=== PATIENT | female | born 1945 | race African-American/Black ===

== ENCOUNTER 2016-06-03 12:42 | Emergency (ER) | payer BC, MEDICARE ==
[~2016-06-03 12:42] MED LIST: DOXY100C2 PO; EZET10TA3 PO; LEVO5TAB2 PO; LISI-334 PO; METF500T4 PO; NAPR375T3 PO
[2016-06-03] MEDS ORDERED: ASCO500T19 PO (14:12)
[2016-06-03] MEDS ORDERED: FLAX1CAP6 PO (14:13)
[2016-06-03] MEDS ORDERED: COD1CAPS PO (14:13)
[2016-06-03] MEDS ORDERED: FLUT9.9S NS (14:14)
[2016-06-03] MEDS ORDERED: MELA3TAB PO (14:14)
[2016-06-03] MEDS ORDERED: MELO-156 PO (14:15)
[2016-06-03] MEDS ORDERED: METO25TA4 PO (14:16)
[2016-06-03] MEDS ORDERED: OMEP40CA5 PO (14:17)
[2016-06-03] MEDS ORDERED: MILK150C2 PO (14:17)
[2016-06-03] MEDS ORDERED: ZINC220T PO (14:18)
[2016-06-03] MEDS ORDERED: SELE200T10 PO (14:18)
[2016-06-03] MEDS ORDERED: IV NORMAL SALINE 1000ML BAG 1,000 ML IV SCH (15:23)
--- NOTE | 2016-06-03 15:23 | PHYS DOC ---
Past Medical History Past Medical History: Diabetes-Type II, Diverticulitis, Other Additional Past Medical Histor: breast cysts, polymyalgia rheumatica Past Surgical History: Hysterectomy, Tonsillectomy, Other Additional Past Surgical Histo: wisdom teeth extraction Alcohol Use: None Drug Use: None Adult General Chief Complaint Chief Complaint: DIZZY/LIGHT HEADED HPI HPI Patient is a 71 year old female who presents with complaint of near syncopal symptoms. Patient states that she was at work using the restroom and became very lightheaded. Patient took her blood pressure at that time and also found to be 170 systolic. The patient took metoprolol and lisinopril. Currently the patient denies any dizziness. Patient states that she had a similar episode one week ago. Patient did not experience any chest pain. Patient did have symptoms of lightheadedness like she was going to pass out. Patient also admitted to tinnitus in the left ear. Patient has history of hypertension and type 2 diabetes mellitus. Since this is her second episode the patient came to the emergency department for evaluation. Review of Systems Review of Systems Constitutional: Lightheadedness, Denies fever or chills [] Eyes: Denies change in visual acuity, redness, or eye pain [] HENT: Tinnitus, Denies nasal congestion or sore throat [] Respiratory: Denies cough or shortness of breath [] Cardiovascular: Hypertension, denies chest pain or edema [] GI: Denies abdominal pain, nausea, vomiting, bloody stools or diarrhea [] : Denies dysuria or hematuria [] Musculoskeletal: Denies back pain or joint pain [] Integument: Denies rash or skin lesions [] Neurologic: Denies headache, focal weakness or sensory changes [] Current Medications Current Medications Current Medications Medications (Trade) Dose Ordered Sig/Madison Start Time Stop Time Status Last Admin Dose Admin Sodium Chloride (Iv Sodium Chloride 0.9% 1000ml Bag) 1,000 ml @ 1,000 mls/hr Q1H 06/03/16 15:23 06/03/16 16:22 DC 06/03/16 16:30 1,000 MLS/HR Allergies Allergies Allergies Coded Allergies Type Severity Reaction Last Updated Verified Fotqjwe-Ruw-Yic Reductase Inhibitor Allergy Intermediate 01/11/14 Yes Physical Exam Physical Exam Constitutional: Alert, afebrile, no acute distress. [] HENT: Normocephalic, atraumatic, bilateral external ears normal, oropharynx moist, no oral exudates, nose normal. [] Eyes: PERRLA, EOMI, conjunctiva normal, no discharge. [] Neck: Normal range of motion, no tenderness, supple, no stridor. [] Cardiovascular:Heart rate regular rhythm, no murmur [] Lungs & Thorax: Bilateral breath sounds clear to auscultation [] Abdomen: Bowel sounds normal, soft, no tenderness, no masses, no pulsatile masses. [] Skin: Warm, dry, no erythema, no rash. [] Back: No tenderness, no CVA tenderness. [] Extremities: No tenderness, no cyanosis, no clubbing, ROM intact, no edema. [] Neurologic: Alert and oriented X 3, normal motor function, normal sensory function, no focal deficits noted. [] Current Patient Data Vital Signs Vital Signs Date Time Temp Pulse Resp B/P Pulse Ox O2 Delivery O2 Flow Rate FiO2 06/03/16 17:35 73 15 114/57 96 Room Air 06/03/16 13:52 97.8 97.8 Lab Values Laboratory Tests Test 06/03/16 15:30 06/03/16 16:10 Urine Collection Type Unknown Urine Color Yellow Urine Clarity Clear Urine pH 6.5 Urine Specific [place] 1.010 Urine Protein Negativemg/dL (NEG-TRACE) Urine Glucose (UA) Negativemg/dL (NEG) Urine Ketones (Stick) Negativemg/dL (NEG) Urine Blood Negative (NEG) Urine Nitrite Negative (NEG) Urine Bilirubin Negative (NEG) Urine Urobilinogen Dipstick 0.2mg/dL (0.2 mg/dL) Urine Leukocyte Esterase Negative (NEG) Urine RBC 0/HPF (0-2) Urine WBC 0/HPF (0-4) Urine Squamous Epithelial Cells Occ/LPF Urine Bacteria 0/HPF (0-FEW) White Blood Count 5.9x10^3/uL (4.0-11.0) Red Blood Count 5.60x10^6/uL (3.50-5.40) H Hemoglobin 14.5g/dL (12.0-15.5) Hematocrit 44.9% (36.0-47.0) Mean Corpuscular Volume 80fL (79-100) Mean Corpuscular Hemoglobin 26pg (25-35) Mean Corpuscular Hemoglobin Concent 32g/dL (31-37) Red Cell Distribution Width 16.5% (11.5-14.5) H Platelet Count 266x10^3/uL (140-400) Neutrophils (%) (Auto) 57% (31-73) Lymphocytes (%) (Auto) 32% (24-48) Monocytes (%) (Auto) 10% (0-9) H Eosinophils (%) (Auto) 1% (0-3) Basophils (%) (Auto) 1% (0-3) Neutrophils # (Auto) 3.4x10^3uL (1.8-7.7) Lymphocytes # (Auto) 1.9x10^3/uL (1.0-4.8) Monocytes # (Auto) 0.6x10^3/uL (0.0-1.1) Eosinophils # (Auto) 0.0x10^3/uL (0.0-0.7) Basophils # (Auto) 0.0x10^3/uL (0.0-0.2) Sodium Level 144mmol/L (136-145) Potassium Level 4.0mmol/L (3.5-5.1) Chloride Level 105mmol/L (98-107) Carbon Dioxide Level 29mmol/L (21-32) Anion Gap 10 (6-14) Blood Urea Nitrogen 17mg/dL (7-20) Creatinine 0.8mg/dL (0.6-1.0) Estimated GFR (Cockcroft-Gault) 86.1 BUN/Creatinine Ratio 21 (6-20) H Glucose Level 96mg/dL (70-99) Calcium Level 10.0mg/dL (8.5-10.1) Magnesium Level 2.3mg/dL (1.8-2.4) Total Bilirubin 0.3mg/dL (0.2-1.0) Aspartate Amino Transferase (AST) 15U/L (15-37) Alanine Aminotransferase (ALT) 22U/L (14-59) Alkaline Phosphatase 69U/L (46-116) Total Protein 8.8g/dL (6.4-8.2) H Albumin 3.8g/dL (3.4-5.0) Albumin/Globulin Ratio 0.8 (1.0-1.7) L Thyroid Stimulating Hormone (TSH) 3.557uIU/mL (0.358-3.74) Laboratory Tests 06/03/16 16:10 Laboratory Tests 06/03/16 16:10 EKG EKG Interpreted by me: Heart rate 75, sinus rhythm, leftward axis, normal intervals , no acute ST/T-wave abnormalities present [] Radiology/Procedures Radiology/Procedures [facility] [address] [place] [address] IMAGING REPORT Signed PATIENT: LAKESHIA MACE ACCOUNT: [id number] : 1945 LOCATION: ER AGE: 71 SEX: F EXAM STATUS: REG ER ORD. PHYSICIAN: HARESH JOHNSON MD REASON: dizziness, near syncope PROCEDURE: HEAD WO CONTRAST Indication: Dizziness and hypertension. Axial imaging through the brain was performed without contrast. The ventricles and sulci are within normal limits. No sulcal effacement is identified. There is no midline shift. No acute intra-axial or extra-axial hemorrhage is detected. The cisterns are patent. The visualized paranasal sinuses are clear. Impression: No acute intracranial process is detected. PQRS Compliance Statement: One or more of the following individualized dose reduction techniques were utilized for this examination: 1. Automated exposure control 2. Adjustment of the mA and/or kV according to patient size 3. Use of iterative reconstruction technique DICTATED and SIGNED BY: LIBBY MACIEL MD DATE: 06/03/16 1550 CC: MIRZA MANRIQUEZ; HARESH JOHNSON MD ~ [] Course & Med Decision Making Course & Med Decision Making Pertinent Labs and Imaging studies reviewed. (See chart for details) Patient was given IV fluids in the emergency department. The patient's lab work is unremarkable and head CT does not reveal any acute pathology. The patient's symptoms are felt less likely to be due to hypertension as the patient's blood pressure reached a maximum of 170 systolic which is not felt the cause acute end -organ damage. The patient's symptoms may be medication related. I did recommend that the patient follow-up with her toy packer, Dr. Loaiza, in 2-3 days for reevaluation. Advised return to emergency department for any worsening symptoms. Patient voiced understanding and in agreement with treatment plan. Dragon Disclaimer Dragon Disclaimer This electronic medical record was generated, in whole or in part, using a voice recognition dictation system. Departure Departure Impression: Primary Impression: Essential hypertension Additional Impression: Near syncope Disposition: HOME, SELF-CARE Condition: IMPROVED Referrals: MIRZA MANRIQUEZ (PCP) Patient Instructions: Dizziness Additional Instructions: Follow-up with Dr. Loaiza in the next 2-3 days. Be sure to avoid any strenuous activity until you have seen Dr. Loaiza. Return to the emergency department for any worsening symptoms. Problem Qualifiers HARESH JOHNSON MD Jun 03, 2016 15:23
[2016-06-03 15:42] LABS: BILIRUBIN,URINE NEGATIVE (NEG); GLUCOSE,URINE NEGATIVE (NEG); NITRITE,URINE NEGATIVE (NEG); PH,URINE 6.5; PROTEIN,URINE NEGATIVE (NEG-TRACE); UROBILINOGEN,URINE 0.2 mg/dL (0.2 mg/dL)
--- NOTE | 2016-06-03 15:46 | EKG ---
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
[2016-06-03 15:52] LABS: BACTERIA,URINE 0 /HPF (0-FEW); RBC,URINE 0 /HPF (0-2); SQUAMOUS EPITHELIAL CELL,UR OCC /LPF; WBC,URINE 0 /HPF (0-4)
--- NOTE | 2016-06-03 15:53 | RAD ---
Indication: Dizziness and hypertension. Axial imaging through the brain was performed without contrast. The ventricles and sulci are within normal limits. No sulcal effacement is identified. There is no midline shift. No acute intra-axial or extra-axial hemorrhage is detected. The cisterns are patent. The visualized paranasal sinuses are clear. Impression: No acute intracranial process is detected. PQRS Compliance Statement: One or more of the following individualized dose reduction techniques were utilized for this examination: 1. Automated exposure control 2. Adjustment of the mA and/or kV according to patient size 3. Use of iterative reconstruction technique
[2016-06-03 16:45] LABS: CREATININE 0.8 mg/dL (0.6-1.0); GFR 86.1
[2016-06-03 16:51] LABS: BASO % 1 % (0-3); EOS % 1 % (0-3); HEMATOCRIT 44.9 % (36.0-47.0); HEMOGLOBIN 14.5 g/dL (12.0-15.5); LYMPH # 1.9 x10^3/uL (1.0-4.8); LYMPH % 32 % (24-48); MEAN CORPUSCULAR HEMOGLOBIN 26 pg (25-35); MEAN CORPUSCULAR HGB CONC 32 g/dL (31-37); MEAN CORPUSCULAR VOLUME 80 fL (79-100); MONO % 10 % (0-9); NEUT % 57 % (31-73); PLATELET COUNT 266 x10^3/uL (140-400); RED CELL DISTRIBUTION WIDTH 16.5 % (11.5-14.5); WHITE BLOOD COUNT 5.9 x10^3/uL (4.0-11.0)
[2016-06-03 16:52] LABS: ALBUMIN 3.8 g/dL (3.4-5.0); ALBUMIN/GLOBULIN RATIO 0.8 (1.0-1.7); MAGNESIUM 2.3 mg/dL (1.8-2.4); TOTAL BILIRUBIN 0.3 mg/dL (0.2-1.0); TOTAL PROTEIN 8.8 g/dL (6.4-8.2)
[2016-06-03 17:35] VITALS: BP 114/57
== END 2016-06-03 18:15 | disposition home or self-care (01) ==
LOC: ER 12:42
DX: I10 Essential (primary) hypertension (principal); R55 Syncope and collapse; E11.9 Type 2 diabetes mellitus without complications; M35.3 Polymyalgia rheumatica; Z88.8 Allergy status to other drugs, medicaments and biological substances
CPT/HCPCS: 36415; 70450; 80053; 81001; 83735; 84443; 85027; 93005; 96360; 99285; J7030

== ENCOUNTER → 2016-07-02 | Outpatient (CLI) | payer BC, MEDICARE ==
[2016-06-03 17:35] VITALS: BP 114/57
[~2016-07-02] MED LIST changes: +ASCO500T19 PO; +COD1CAPS2 PO; +FLAX1CAP6 PO; +FLUT9.9S NS; +MELA3TAB PO; +MELO-156 PO; +METO25TA4 PO; +MILK150C2 PO; +OMEP40CA5 PO; +SELE200T10 PO; +ZINC220T PO
--- NOTE | 2016-07-02 11:22 | CARD ---
APPROVED REPORT EXAM: Two-dimensional and M-mode echocardiogram with Doppler and color Doppler. Other Information Quality : GoodHR: 72bpm Rhythm : NSR INDICATION Syncope RISK FACTORS Hypertension 2D DIMENSIONS RVDd2.4 (2.9-3.5cm)Left Atrium(2D)2.9 (1.6-4.0cm) IVSd0.9 (0.7-1.1cm)Aortic Root(2D)2.9 (2.0-3.7cm) LVDd4.4 (3.9-5.9cm)LVOT Diameter2.2 (1.8-2.4cm) PWd0.9 (0.7-1.1cm)LVDs2.8 (2.5-4.0cm) FS (%) 37.4 %SV60.3 ml LVEF(%)67.6 (>50%) Aortic Valve AoV Peak Jesse.146.5cm/sAoV VTI32.1cm AO Peak GR.8.6mmHgLVOT Peak Jesse.115.6cm/s AO Mean GR.5mmHgAVA (VMAX)3.10cm2 AI P 1/2 [id number] Mitral Valve MV E Ekffszvi16.5cm/sMV E Peak Gr.4mmHg MV DECEL [id number] A Wbknejrf82.8cm/s MV E Mean Gr.1mmHgE/A Ratio0.8 MV A [id number] Pulmonary Valve PV Peak Hdpqkemv60.2cm/s Tricuspid Valve TR P. Mnrlawjx053ql/sTR Peak Gr.30mmHg Pulmonary Vein S1 Crhfsoag84.3cm/sD2 Lnvdsvvi63.9cm/s PVa [id number] LEFT VENTRICLE The left ventricle is normal size. There is normal left ventricular wall thickness. The left ventricu lar systolic function is normal and the ejection fraction is within normal range. The Ejection Fracti on is 60-65%. There is normal LV segmental wall motion. Transmitral Doppler flow pattern is Grade I-a bnormal relaxation pattern. RIGHT VENTRICLE The right ventricle is normal size. There is normal right ventricular wall thickness. The right ventr icular systolic function is normal. ATRIA The left atrium size is normal. The right atrium size is normal. The interatrial septum is intact wit h no evidence for an atrial septal defect or patent foramen ovale as noted on 2-D or Doppler imaging. AORTIC VALVE The aortic valve is mildly thickened. Doppler and Color Flow revealed trace aortic regurgitation. The re is no significant aortic valvular stenosis. MITRAL VALVE The mitral valve leaflets are thickened. There is no evidence of mitral valve prolapse. There is no m itral valve stenosis. Doppler and Color Flow revealed trace mitral regurgitation. TRICUSPID VALVE Doppler and Color Flow revealed trace tricuspid regurgitation. The pulmonary artery systolic pressure is estimated at 35 mmHg. There is mild pulmonary hypertension. PULMONIC VALVE Doppler and Color Flow revealed mild pulmonic valvular regurgitation. There is no pulmonic valvular s tenosis. GREAT VESSELS The aortic root is normal in size. The ascending aorta is normal in size. The IVC is normal in size a nd collapses >50% with inspiration. PERICARDIAL EFFUSION There is no evidence of significant pericardial effusion. Critical Notification Critical Value: No <Conclusion> The left ventricular systolic function is normal and the ejection fraction is within normal range. Th e Ejection Fraction is 60-65%. No significant valvular disease.
== END | disposition home or self-care (01) ==
LOC: ECHO 07:51
PROVIDERS: ATTEND Internal Medicine Cardiovascular Disease
DX: R55 Syncope and collapse (principal)
CPT/HCPCS: 93306

== ENCOUNTER → 2016-09-05 | Outpatient (CLI) | payer BC ==
--- NOTE | 2016-09-05 13:37 | CARD ---
APPROVED REPORT PROCEDURE: Successful implantation of Biotronik Biomonitor loop recorder INDICATIONS: Syncope of uncertain etiology PROCEDURE DETAILS: An informed consent was obtained from patient. Patient was brought to the procedure suite and her le ft chest and shoulder were prepped and draped in the usual fashion. 20 mL of 2% lidocaine was infilt rated into the skin and subcutaneous tissues for local anesthesia. An incision was made in the left third intercostal space 1 inch from midsternal line and using the introducer provided with the kit a track was created in subcutaneous tissue. Subsequently, with the help of the deployer provided with the kit, a Biotronik Biomonitor loop recorder was placed in the subcutaneous tissue. The incision wa s closed in one layer. Hemostasis was secured. Patient tolerated the procedure well. There were no immediate complications. CONCLUSION: Successful implantation of Biotronik Biomonitor loop recorder for syncope of uncertain etiology to ru le out any significant arrhythmias.
== END | disposition home or self-care (01) ==
LOC: LINQ 09:57
PROVIDERS: ATTEND Internal Medicine Cardiovascular Disease
DX: R55 Syncope and collapse (principal); M19.072 Primary osteoarthritis, left ankle and foot; E11.9 Type 2 diabetes mellitus without complications; Z90.710 Acquired absence of both cervix and uterus; Z83.3 Family history of diabetes mellitus; Z82.49 Family history of ischemic heart disease and other diseases of the circulatory system
CPT/HCPCS: 33282; C1764

== ENCOUNTER → 2016-10-20 | Outpatient (CLI) | payer BC, MEDICARE ==
[~2016-10-20] MED LIST changes: +EZET10TA18 PO; -EZET10TA3 PO; -MELA3TAB PO; +MELA3TAB2 PO; -MELO-156 PO; +MELO7.5T29 PO
--- NOTE | 2016-10-20 16:48 | RAD ---
MRI Cervical Spine Without Contrast History:NECK PAIN AND NUMBNESS WITH WORSENING BILATERAL ARM RADICULOPATHY, HX OF POLYMYALGIA RHEUMATICA Technique: Multiplanar, multi sequential noncontrast MR imaging was performed of the cervical spine. Comparison: None Findings: Cervical vertebral body stature and AP alignment are maintained. Cervical cord caliber is within normal limits without convincing focal signal abnormality allowing for artifact. There is no significant abnormality of the cervical medullary junction. There is nonspecific relative low signal of the marrow on T1 and T2 sequences. Intervertebral disc spaces are overall adequate. C2-C3: Neural foramina and spinal canal are adequate. C3-C4: Neural foramina and spinal canal are adequate. C4-C5: There is moderate left facet hypertrophic change. Spinal canal is adequate. There is mild narrowing of the left neural foramen, right neural foramen adequate. C5-C6: Spinal canal and neural foramina are adequate. C6-C7: Spinal canal and the neural foramina are adequate. C7-T1: There is a shallow right paracentral protrusion. Neural foramina and spinal canal are adequate. Impression: 1. There is no significant cervical spinal stenosis. There is minimal narrowing of the left C4-5 neural foramen by facet hypertrophic change. 2. There is relative low signal of the marrow on T1 and T2 sequences not associated with significant marrow edema. Nonspecific findings could be due to hyperplastic marrow as can be associated with chronic or systemic stress reaction or hypoxia. Electronically signed by: Giorgio Fermin MD (10/20/2016 4:45 PM)
== END | disposition home or self-care (01) ==
LOC: MRI 15:03
PROVIDERS: ATTEND Psychiatry & Neurology Neurology
DX: M54.2 Cervicalgia (principal)
CPT/HCPCS: 72141

== ENCOUNTER 2016-12-31 21:20 | Emergency (ER) | payer BC, MEDICARE ==
[~2016-12-31] VITALS: Ht 160 cm; Wt 97.5 kg
[2016-12-31 21:34] VITALS: BP 164/86
--- NOTE | 2016-12-31 21:52 | PHYS DOC ---
Past Medical History Past Medical History: Diabetes-Type II, Diverticulitis, Other Additional Past Medical Histor: breast cysts, polymyalgia rheumatica Past Surgical History: Hysterectomy, Tonsillectomy, Other Additional Past Surgical Histo: wisdom teeth extraction Alcohol Use: None Drug Use: None Adult General Chief Complaint Chief Complaint: ABDOMINAL PAIN HPI HPI Patient is a 71 year old female who presents with complaint of abdominal pain and vomiting. Patient states that her symptoms started earlier today. Patient states that she started having trouble after she had eaten a salad that had a vinegar dressing which she states may have worsened her gastritis. Patient states initially she felt lightheaded and had ringing in her ears. Patient states she had one episode of vomiting which seemed to help briefly with her symptoms, however she states that her pain symptoms started coming back. Patient describes the pain as burning and states that in her upper abdomen and radiates towards her left side. Patient denies radiation of pain into her back or chest. Patient denies shortness of breath, fever. Patient has had loose stools today which she states has aggravated hemorrhoids and has caused mild bleeding but states that she is not having any severe or atypical bleeding for her hemorrhoids. Due to persistent symptoms, the patient came to the emergency department for evaluation. Review of Systems Review of Systems Constitutional: Denies fever or chills [] Eyes: Denies change in visual acuity, redness, or eye pain [] HENT: Denies nasal congestion or sore throat [] Respiratory: Denies cough or shortness of breath [] Cardiovascular: Denies chest pain or edema [] GI: Abdominal pain, nausea, vomiting, loose stools [] : Denies dysuria or hematuria [] Musculoskeletal: Denies back pain or joint pain [] Integument: Denies rash or skin lesions [] Neurologic: Denies headache, focal weakness or sensory changes [] Current Medications Current Medications Current Medications Medications (Trade) Dose Ordered Sig/Madison Start Time Stop Time Status Last Admin Dose Admin Famotidine (Pepcid) 20 mg 1X ONCE 12/31/16 22:00 12/31/16 22:01 DC 12/31/16 22:22 20 MG Multi-Ingredient Mouthwash/Gargle (Gi Cocktail Single Dose) 15 ml 1X ONCE 12/31/16 22:00 12/31/16 22:01 DC 12/31/16 22:23 15 ML Ondansetron HCl (Zofran) 4 mg 1X ONCE 12/31/16 22:00 12/31/16 22:01 DC 12/31/16 22:23 4 MG Sodium Chloride 1,000 ml @ 1,000 mls/hr Q1H 12/31/16 22:00 12/31/16 22:59 DC 12/31/16 22:21 1,000 MLS/HR Allergies Allergies Allergies Coded Allergies Type Severity Reaction Last Updated Verified Exlqbre-Pku-Jya Reductase Inhibitor Allergy Intermediate 01/11/14 Yes Physical Exam Physical Exam Constitutional: Alert, afebrile, no acute distress. [] HENT: Normocephalic, atraumatic, bilateral external ears normal, oropharynx moist, no oral exudates, nose normal. [] Eyes: PERRLA, EOMI, conjunctiva normal, no discharge. [] Neck: Normal range of motion, no tenderness, supple, no stridor. [] Cardiovascular:Heart rate regular rhythm, no murmur [] Lungs & Thorax: Bilateral breath sounds clear to auscultation [] Abdomen: Bowel sounds normal, soft, no tenderness, no masses, no pulsatile masses. [] Skin: Warm, dry, no erythema, no rash. [] Back: No tenderness, no CVA tenderness. [] Extremities: No tenderness, no cyanosis, no clubbing, ROM intact, no edema. [] Neurologic: Alert and oriented X 3, normal motor function, normal sensory function, no focal deficits noted. [] Current Patient Data Vital Signs Vital Signs Date Time Temp Pulse Resp B/P (MAP) Pulse Ox O2 Delivery O2 Flow Rate FiO2 12/31/16 21:34 98.7 99 18 164/86 (112) 97 Room Air 98.7 Lab Values Laboratory Tests Test 12/31/16 21:31 12/31/16 21:51 12/31/16 22:20 Urine Collection Type Unknown Urine Color Yellow Urine Clarity Clear Urine pH 6.0 Urine Specific Orange 1.020 Urine Protein Negative mg/dL (NEG-TRACE) Urine Glucose (UA) Negative mg/dL (NEG) Urine Ketones (Stick) Negative mg/dL (NEG) Urine Blood Negative (NEG) Urine Nitrite Negative (NEG) Urine Bilirubin Negative (NEG) Urine Urobilinogen Dipstick 0.2 mg/dL (0.2 mg/dL) Urine Leukocyte Esterase Negative (NEG) Urine RBC Occ /HPF (0-2) Urine WBC 1-4 /HPF (0-4) Urine Squamous Epithelial Cells Few /LPF Urine Bacteria Few /HPF (0-FEW) Urine Mucus Slight /LPF White Blood Count 7.9 x10^3/uL (4.0-11.0) Red Blood Count 5.40 x10^6/uL (3.50-5.40) Hemoglobin 14.1 g/dL (12.0-15.5) Hematocrit 43.9 % (36.0-47.0) Mean Corpuscular Volume 81 fL (79-100) Mean Corpuscular Hemoglobin 26 pg (25-35) Mean Corpuscular Hemoglobin Concent 32 g/dL (31-37) Red Cell Distribution Width 16.3 % (11.5-14.5) H Platelet Count 224 x10^3/uL (140-400) Neutrophils (%) (Auto) 65 % (31-73) Lymphocytes (%) (Auto) 29 % (24-48) Monocytes (%) (Auto) 5 % (0-9) Eosinophils (%) (Auto) 0 % (0-3) Basophils (%) (Auto) 1 % (0-3) Neutrophils # (Auto) 5.2 x10^3uL (1.8-7.7) Lymphocytes # (Auto) 2.3 x10^3/uL (1.0-4.8) Monocytes # (Auto) 0.4 x10^3/uL (0.0-1.1) Eosinophils # (Auto) 0.0 x10^3/uL (0.0-0.7) Basophils # (Auto) 0.0 x10^3/uL (0.0-0.2) Sodium Level 142 mmol/L (136-145) Potassium Level 4.0 mmol/L (3.5-5.1) Chloride Level 104 mmol/L (98-107) Carbon Dioxide Level 29 mmol/L (21-32) Anion Gap 9 (6-14) Blood Urea Nitrogen 22 mg/dL (7-20) H Creatinine 1.1 mg/dL (0.6-1.0) H Estimated GFR (Cockcroft-Gault) 59.6 BUN/Creatinine Ratio 20 (6-20) Glucose Level 124 mg/dL (70-99) H Calcium Level 9.1 mg/dL (8.5-10.1) Total Bilirubin 0.1 mg/dL (0.2-1.0) L Aspartate Amino Transferase (AST) 17 U/L (15-37) Alanine Aminotransferase (ALT) 27 U/L (14-59) Alkaline Phosphatase 72 U/L (46-116) Total Protein 7.2 g/dL (6.4-8.2) Albumin 3.7 g/dL (3.4-5.0) Albumin/Globulin Ratio 1.1 (1.0-1.7) Lipase 78 U/L (73-393) Laboratory Tests 12/31/16 21:51 Laboratory Tests 12/31/16 22:20 EKG EKG Interpreted by me: Heart rate 76, sinus rhythm, normal intervals, normal axis, no acute ST/T-wave abnormalities present [] Radiology/Procedures Radiology/Procedures 3 view acute abdominal series interpreted by me: No infiltrates, no effusions, normal cardiac silhouette, nonobstructive bowel gas pattern, no free air under the diaphragm [] Course & Med Decision Making Course & Med Decision Making Pertinent Labs and Imaging studies reviewed. (See chart for details) Patient was given IV fluids, Zofran, Pepcid, and GI cocktail. On reevaluation, patient states her symptoms have significantly improved at this time. The patient's symptoms appear consistent with exacerbation of acid reflux disease. The patient will be prescribed Zofran for nausea and advised to continue on stomach acid reducing medication at home. Also recommended use of Maalox as needed for heartburn symptoms. Recommended follow-up in 2-3 days with primary doctor and return to emergency department for any worsening symptoms. Patient voiced understanding and in agreement with treatment plan. Dragon Disclaimer Dragon Disclaimer This electronic medical record was generated, in whole or in part, using a voice recognition dictation system. Departure Departure Impression: Primary Impression: Abdominal pain Additional Impression: Nausea and vomiting Disposition: HOME, SELF-CARE Condition: IMPROVED Referrals: MIRZA MANRIQUEZ (PCP) Patient Instructions: Abdominal Pain (Nonspecific), Nausea and Vomiting Additional Instructions: Follow-up with your primary doctor in the next 2-3 days for reevaluation. Return to emergency department for any worsening symptoms. Scripts Ondansetron (ZOFRAN ODT) 4 Mg Tab.rapdis 1 TAB SL Q8HRS Y for NAUSEA/VOMITING, #15 TAB Prov: HARESH JOHNSON MD 12/31/16 Problem Qualifiers Primary Impression: Abdominal pain Abdominal location: epigastric Qualified Codes: R10.13 - Epigastric pain Additional Impression: Nausea and vomiting Vomiting type: unspecified Vomiting Intractability: non-intractable Qualified Codes: R11.2 - Nausea with vomiting, unspecified HARESH JOHNSON MD Dec 31, 2016 21:52
[2016-12-31] MEDS ORDERED: IV NORMAL SALINE 1000ML BAG 1,000 ML IV SCH (22:00)
[2016-12-31] MEDS ORDERED: LIDO:MAALOX:DONNATAL 1:1:1 15 ML SINGLE DOSE SWSW ONE (22:00)
[2016-12-31] MEDS ORDERED: FAMOTIDINE 20 MG/2 ML VIAL IVP ONE (22:00)
[2016-12-31] MEDS ORDERED: ONDANSETRON PF 4 MG/2 ML VIAL. IV ONE (22:00)
[2016-12-31 22:01] LABS: BILIRUBIN,URINE NEGATIVE (NEG); GLUCOSE,URINE NEGATIVE (NEG); NITRITE,URINE NEGATIVE (NEG); PROTEIN,URINE NEGATIVE (NEG-TRACE); UROBILINOGEN,URINE 0.2 mg/dL (0.2 mg/dL)
[2016-12-31 22:01] LABS: BASO % 1 % (0-3); EOS % 0 % (0-3); HEMATOCRIT 43.9 % (36.0-47.0); HEMOGLOBIN 14.1 g/dL (12.0-15.5); LYMPH # 2.3 x10^3/uL (1.0-4.8); LYMPH % 29 % (24-48); MEAN CORPUSCULAR HEMOGLOBIN 26 pg (25-35); MEAN CORPUSCULAR HGB CONC 32 g/dL (31-37); MEAN CORPUSCULAR VOLUME 81 fL (79-100); MONO % 5 % (0-9); NEUT % 65 % (31-73); PLATELET COUNT 224 x10^3/uL (140-400); RED CELL DISTRIBUTION WIDTH 16.3 % (11.5-14.5); WHITE BLOOD COUNT 7.9 x10^3/uL (4.0-11.0)
[2016-12-31 22:08] LABS: BACTERIA,URINE FEW /HPF (0-FEW); RBC,URINE OCC /HPF (0-2); SQUAMOUS EPITHELIAL CELL,UR FEW /LPF
[2016-12-31 22:40] LABS: CALCIUM 9.1 mg/dL (8.5-10.1); CREATININE 1.1 mg/dL (0.6-1.0); GFR 59.6
[2016-12-31 22:46] LABS: ALBUMIN 3.7 g/dL (3.4-5.0); ALBUMIN/GLOBULIN RATIO 1.1 (1.0-1.7); TOTAL BILIRUBIN 0.1 mg/dL (0.2-1.0); TOTAL PROTEIN 7.2 g/dL (6.4-8.2)
[2016-12-31] MEDS ORDERED: ONDA4TAB10 SL (23:04)
--- NOTE | 2017-01-01 07:04 | EKG ---
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
--- NOTE | 2017-01-01 07:25 | RAD ---
Acute abdominal series Technique: Abdominal pain with nausea and vomiting for one day Technique: Acute abdominal series radiographs Comparison: None Findings: Heart is normal in size. Lungs are clear. No abnormally dilated bowel loops or air-fluid levels. No evidence of free intraperitoneal air. Large amount of stool is seen within distal transverse and descending colon. The contours of solid abdominal organs within normal limits. No calcific densities projecting over the kidneys. Mild degenerative disc disease in the lumbar spine. Impression: 1. No abnormally dilated bowel loops suggest bowel obstruction. 2. Large amount of stool in the distal colon. Patient may be constipated.
== END 2016-12-31 23:48 | disposition home or self-care (01) ==
LOC: ER 21:20
DX: R10.13 Epigastric pain (principal); R11.2 Nausea with vomiting, unspecified; R42 Dizziness and giddiness; R19.7 Diarrhea, unspecified; E11.9 Type 2 diabetes mellitus without complications; M35.3 Polymyalgia rheumatica; Z90.710 Acquired absence of both cervix and uterus; Z88.8 Allergy status to other drugs, medicaments and biological substances
CPT/HCPCS: 36415; 74022; 80053; 81001; 83690; 85025; 93005; 96361; 96374; 96375; 99285; J2405; J7030; S0028

== ENCOUNTER → 2019-07-25 | Outpatient (CLI) | payer BC ==
[~2019-07-25] MED LIST changes: -COD1CAPS2 PO; +COD1CAPS6 PO; -EZET10TA18 PO; +EZET10TA20 PO; -MELA3TAB2 PO; +MELA3TAB4 PO; +METF500T16 PO; -METF500T4 PO; +NAPR-695 PO; -NAPR375T3 PO; +OMEP40CA45 PO; -OMEP40CA5 PO; +ONDA4TAB10 SL; -ZINC220T PO; +ZINC220T3 PO
--- NOTE | 2019-07-25 10:28 | CARD ---
MR#: [id number] Date of Study: 07/25/2019 Ordering Physician: LENIN GOLDBERG, Referring Physician: LENIN GOLDBERG, Tech: Chayito Su MERI APPROVED REPORT EXAM: Two-dimensional and M-mode echocardiogram with Doppler and color Doppler. Other Information Quality : GoodHR: 77bpm Rhythm : NSR INDICATION Dizziness and Vertigo Arrhythmia 2D DIMENSIONS Left Atrium(2D)2.7 (1.6-4.0cm)IVSd0.6 (0.7-1.1cm) Aortic Root(2D)2.6 (2.0-3.7cm)LVDd4.5 (3.9-5.9cm) LVOT Diameter2.2 (1.8-2.4cm)PWd0.9 (0.7-1.1cm) LVDs2.4 (2.5-4.0cm)FS (%) 45.7 % SV70.8 mlLVEF(%)77.2 (>50%) Aortic Valve AoV Peak Jesse.126.0cm/Candice Peak GR.6.3mmHg AI P 1/2 Imwa186ex Mitral Valve MV E Tnxzigxh07.4cm/sMV E Peak Gr.4mmHg MV DECEL [id number] A Lthrwbzj50.3cm/s MV E Mean Gr.2mmHgE/A Ratio0.9 MV A [id number] TDI Lateral E' P. V0.08cm/sMedial E' P. V0.07cm/s E/Lateral E'992.5E/Medial E'1134.3 Pulmonary Valve PV Peak Mwnkhnar21.0cm/s Tricuspid Valve TR P. Wzfdrmhc412ma/sTR Peak Gr.28mmHg Pulmonary Vein S1 Dfhlqgtw47.1cm/sD2 Umdcdvck19.4cm/s PVa qsxnxbyp156mhmr LEFT VENTRICLE The left ventricle is normal size. There is normal left ventricular wall thickness. Left ventricular systolic function is normal. The Ejection Fraction is 65-70%. No regional wall motion abnormalities n oted. The left ventricular diastolic function is normal. No left ventricle thrombus noted on this kristen dy. There is no ventricular septal defect visualized. There is no left ventricular aneurysm. There is no mass noted in the left ventricle. RIGHT VENTRICLE The right ventricle is normal size. There is normal right ventricular wall thickness. The right ventr icular systolic function is normal. ATRIA The left atrium size is normal. The right atrium size is normal. The interatrial septum is intact wit h no evidence for an atrial septal defect or patent foramen ovale as noted on 2-D or Doppler imaging. AORTIC VALVE The aortic valve is normal in structure and function. The aortic valve is trileaflet with minimal scl erotic changes. Trace aortic regurgitation is present. There is no aortic valvular stenosis. There is no aortic valvular vegetation. MITRAL VALVE The mitral valve is normal in structure and function. There is no evidence of mitral valve prolapse. There is no mitral valve stenosis. There is mild mitral valve regurgitation noted. TRICUSPID VALVE The tricuspid valve is normal in structure and function. Doppler and Color Flow revealed mild tricusp id regurgitation. The pulmonary artery systolic pressure is estimated at 30-40 mmHg. There is mild pu lmonary hypertension. The PA pressure was estimated at 31 mmHg. There is no tricuspid valve prolapse or vegetation. There is no tricuspid valve stenosis. PULMONIC VALVE There is no pulmonic valvular regurgitation. There is no pulmonic valvular stenosis. GREAT VESSELS The aortic root is normal in size. The ascending aorta is normal in size. The aortic arch is normal i n size. The IVC is normal in size and collapses >50% with inspiration. PERICARDIAL EFFUSION There is no evidence of significant pericardial effusion. Critical Notification Critical Value: No <Conclusion> Left ventricular systolic function is normal. The Ejection Fraction is 65-70%. No regional wall motion abnormalities noted. Doppler and Color Flow revealed mild tricuspid regurgitation. The pulmonary artery systolic pressure is estimated at 30-40 mmHg. There is mild pulmonary hypertension. The PA pressure was estimated at 31 mmHg. Signed by : Pawan Edouard, Electronically Approved : 07/25/2019 10:27:35
== END | disposition home or self-care (01) ==
LOC: ECHO 07:55
PROVIDERS: ATTEND Internal Medicine Cardiovascular Disease
DX: I07.1 Rheumatic tricuspid insufficiency (principal); I27.20 Pulmonary hypertension, unspecified; I10 Essential (primary) hypertension
CPT/HCPCS: 93306

== ENCOUNTER 2021-08-17 19:52 | Emergency (ER) | payer MEDICARE, OTHER ==
[~2021-08-17] VITALS: Ht 157.5 cm; Wt 99.5 kg
[~2021-08-17 19:52] MED LIST changes: +APIX5TAB PO; -DOXY100C2 PO; +DOXY100C3 PO; -LISI-334 PO; +LISI20TA18 PO; -OMEP40CA45 PO; +OMEP40CA7 PO
[2021-08-17 20:26] LABS: FECAL OB PT POSITIVE (NEG)
[2021-08-17] MEDS ORDERED: MORPHINE SULFATE 4 MG/ML INJ. IVP ONE (20:30)
[2021-08-17] MEDS ORDERED: FAMOTIDINE 20 MG/2 ML VIAL IVP ONE (20:30)
[2021-08-17 20:31] LABS: BACTERIA,URINE 0 /HPF (0-FEW); RBC,URINE 0 /HPF (0-2); WBC,URINE OCC /HPF (0-4)
--- NOTE | 2021-08-17 20:36 | PHYS DOC ---
Past Medical History Past Medical History: A-Fib, Diabetes-Type II, Diverticulitis, GERD, Other Additional Past Medical Histor: breast cysts, polymyalgia rheumatica Past Surgical History: Hysterectomy, Tonsillectomy, Other Additional Past Surgical Histo: wisdom teeth extraction Smoking Status: Never Smoker Alcohol Use: None Drug Use: None General Adult EDM: Chief Complaint: RECTAL BLEED HPI: HPI: Patient is a 76 year old female with a history of A. fib on Eliquis, diabetes type 2 who presents to the ED today complaining of bright red rectal bleed that has been going on intermittently since Thursday this week. Patient is also complaining of mild intermittent left-sided abdominal pain. She states she has hemorrhoids but does not know if this is the source of her bleeding or not. Denies any nausea, vomiting, denies any chest pain or shortness of breath. Review of Systems: Review of Systems: Constitutional: Denies fever or chills. [] Eyes: Denies change in visual acuity. [] HENT: Denies nasal congestion or sore throat. [] Respiratory: Denies cough or shortness of breath. [] Cardiovascular: Denies chest pain or edema. [] GI: Reports left-sided abdominal pain, rectal bleeding, denies nausea, vomiting, bloody stools or diarrhea. [] : Denies dysuria. [] Musculoskeletal: Denies back pain or joint pain. [] Integument: Denies rash. [] Neurologic: Denies headache, focal weakness or sensory changes. [] Psychiatric: Denies depression or anxiety. [] Heart Score: C/O Chest Pain: N/A Risk Factors: Risk Factors: DM, Current or recent (<one month) smoker, HTN, HLP, family histo ry of CAD, obesity. Risk Scores: Score 0 - 3: 2.5% MACE over next 6 weeks - Discharge Home Score 4 - 6: 20.3% MACE over next 6 weeks - Admit for Clinical Observation Score 7 - 10: 72.7% MACE over next 6 weeks - Early Invasive Strategies Current Medications: Current Medications Medications (Trade) Dose Ordered Sig/Madison Start Time Stop Time Status Last Admin Dose Admin Famotidine (Pepcid Vial) 20 mg 1X ONCE 08/17/21 20:30 08/17/21 20:31 DC Morphine Sulfate (Morphine Sulfate) 4 mg 1X ONCE 08/17/21 20:30 08/17/21 20:31 DC Allergies: Allergies: Allergies Coded Allergies Type Severity Reaction Last Updated Verified Yopbalm-Hkc-Sbf Reductase Inhibitor Allergy Intermediate 01/11/14 Yes Physical Exam: PE: Constitutional: Well developed, well nourished, no acute distress, non-toxic appearance. [] HENT: Normocephalic, atraumatic, bilateral external ears normal, oropharynx moist, no oral exudates, nose normal. [] Eyes: PERRLA, EOMI, conjunctiva normal, no discharge. [] Neck: Normal range of motion, no tenderness, supple, no stridor. [] Cardiovascular:Heart rate regular rhythm, no murmur [] Lungs & Thorax: Bilateral breath sounds clear to auscultation [] Abdomen: Bowel sounds normal, soft, no tenderness, no masses, no pulsatile masses. [] Rectal exam-external rectum with multiple nonthrombosed hemorrhoids. No active bleeding, no internal hemorrhoids noted. Skin: Warm, dry, no erythema, no rash. [] Back: No tenderness, no CVA tenderness. [] Extremities: No tenderness, no cyanosis, no clubbing, ROM intact, no edema. [] Neurologic: Alert and oriented X 3, normal motor function, normal sensory function, no focal deficits noted. [] Psychologic: Affect normal, judgement normal, mood normal. [] Current Patient Data: Labs: Laboratory Tests Test 08/17/21 19:48 08/17/21 20:10 Urine Collection Type Unknown Urine Color (Auto) Colorless Urine Turbidity Clear Urine pH (Auto) 5.5 (<5.0-8.0) Urine Specific Randolph 1.012 (1.000-1.030) Urine Protein (Auto) Negative mg/dL (Negative) Urine Glucose (Auto)(UA) Negative mg/dL (Negative) Urine Ketones (Auto) Negative mg/dL (Negative) Urine Blood (Auto) Negative (Negative) Urine Nitrite Negative (Negative) Urine Bilirubin (Auto) Negative (Negative) Urine Urobilinogen (Auto) Normal mg/dL (Normal) Urine Leukocyte Esterase (Auto) Negative (Negative) Urine RBC 0 /HPF (0-2) Urine WBC Occ /HPF (0-4) Urine Squamous Epithelial Cells Few /LPF Urine Bacteria 0 /HPF (0-FEW) Stool Occult Blood Positive (NEG) Vital Signs: Vital Signs Date Time Temp Pulse Resp B/P (MAP) Pulse Ox O2 Delivery O2 Flow Rate FiO2 08/17/21 19:55 98.1 89 18 173/94 (120) 99 Room Air 98.1 EKG: EKG: [] Radiology/Procedures: Radiology/Procedures: []PROCEDURE: CT ABD PELV W/ IV CONTRST ONLY Examination: CT of the abdomen pelvis with IV contrast HISTORY: History of abdominal pain, bloody stools COMPARISON: None available TECHNIQUE: Axial CT images of the abdomen pelvis were performed with IV contrast: Coronal and sagittal reformats are performed Exposure: One or more of the following individualized dose reduction techniques were utilized for this examination: 1. Automated exposure control 2. Adjustment of the mA and/or kV according to patient size 3. Use of iterative reconstruction technique. FINDINGS: Mild bibasilar lung atelectasis. No evidence of free air identified in the abdomen Cystic structure identified in the right lobe of the liver measuring 2.2 cm likely a cyst. The spleen, adrenals grossly appears unremarkable. The gallbladder is mildly distended The stomach is mildly distended with visualized pancreas grossly appears unremarkable. The small bowel is nondilated Feces and gas noted in the colon Few sigmoid colon diverticulosis. Moderate degenerative changes lumbar spine IMPRESSION: 1. No acute intra-abdominal findings. 2. Few sigmoid colon diverticulosis. 3. 2.2 cm cyst identified in the right lobe of the liver. Electronically signed by: Sinan Gabriel MD (08/17/2021 10:01 PM) [id number] DICTATED and SIGNED BY: SINAN GABRIEL MD DATE: 08/17/212156 Course & Med Decision Making: Course & Med Decision Making Pertinent Labs and Imaging studies reviewed. (See chart for details) This is a 76-year-old female presented to the ED today complaining of rectal bleeding and left-sided abdominal pain intermittently since Thursday this week. CBC with a normal WBC, normal hemoglobin and hematocrit, CMP with no acute findings. CT of the abdomen and pelvis was negative for any acute findings, noted for diverticulosis, and 2.2 cm cyst identified in the right lobe of the liver. Hemoccult positive. 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 She was instructed to follow-up with her PCP on Thursday and they can repeat her hemoglobin and hematocrit if she is still bleeding and see if the number is going down or not. She also stated she will call DR. Beal GI doctor and Dr. Watson her general surgeon and set up a follow-up appointment. She was instructed to return to the ED at any point symptoms worsen Julianna Disclaimer: Julianna Disclaimer: This electronic medical record was generated, in whole or in part, using a voice recognition dictation system. Departure Departure Impression: Primary Impression: Rectal bleed Additional Impression: Abdominal pain, left lower quadrant Disposition: HOME / SELF CARE / HOMELESS Condition: STABLE Referrals: MIRZA MANRIQUEZ (PCP) follow up on Thursday Patient Instructions: Rectal Bleeding, Ymcg-xn-Nodk Additional Instructions: You were evaluated in the emergency room for rectal bleed. Your hemoglobin and hematocrit are normal. Your CT of the abdomen pelvis are negative for any acute findings. You are noted to have a lesion in your liver. Please contact Dr. Beal and follow-up for this. Also contact your general surgeon in follow-up for the hemorrhoids as well as your primary care doctor. Please come back to the ED at any point symptoms worsen. Scripts Hydrocortisone (ANUSOL-HC) 30 Gm Cream..g. 1 GRETCHEN TP TID for 10 Days, #30 GM 0 Refills Prov: DHRUV LOONEY APRN 08/17/21 DHRUV LOONEY APRN Aug 17, 2021 20:36
[2021-08-17 20:42] LABS: BASO # 0.1 x10^3/uL (0.0-0.2); BASO % 2 % (0-3); EOS # 0.1 x10^3/uL (0.0-0.7); EOS % 1 % (0-3); HEMATOCRIT 41.4 % (36.0-47.0); HEMOGLOBIN 13.7 g/dL (12.0-15.5); LYMPH # 2.1 x10^3/uL (1.0-4.8); LYMPH % 31 % (24-48); MEAN CORPUSCULAR HEMOGLOBIN 27 pg (25-35); MEAN CORPUSCULAR HGB CONC 33 g/dL (31-37); MEAN CORPUSCULAR VOLUME 82 fL (79-100); MONO % 15 % (0-9); NEUT # 3.4 x10^3/uL (1.8-7.7); NEUT % 51 % (31-73); PLATELET COUNT 269 x10^3/uL (140-400); RED BLOOD COUNT 5.06 x10^6/uL (3.50-5.40); RED CELL DISTRIBUTION WIDTH 15.8 % (11.5-14.5); WHITE BLOOD COUNT 6.6 x10^3/uL (4.0-11.0)
[2021-08-17 20:59] LABS: CALCIUM 9.6 mg/dL (8.5-10.1); CREATININE 1.1 mg/dL (0.6-1.0); GFR 58.7
[2021-08-17 21:06] LABS: ALBUMIN 3.7 g/dL (3.4-5.0); TOTAL BILIRUBIN 0.2 mg/dL (0.2-1.0); TOTAL PROTEIN 7.4 g/dL (6.4-8.2)
[2021-08-17] MEDS ORDERED: IOHEXOL 300 MG/ML 100ML VIAL. IV ONE (21:15)
--- NOTE | 2021-08-17 22:03 | RAD ---
Examination: CT of the abdomen pelvis with IV contrast HISTORY: History of abdominal pain, bloody stools COMPARISON: None available TECHNIQUE: Axial CT images of the abdomen pelvis were performed with IV contrast: Coronal and sagitta l reformats are performed Exposure: One or more of the following individualized dose reduction techniques were utilized for thi s examination: 1. Automated exposure control 2. Adjustment of the mA and/or kV according to patient size 3. Use of iterative reconstruction technique. FINDINGS: Mild bibasilar lung atelectasis. No evidence of free air identified in the abdomen Cystic structure identified in the right lobe of the liver measuring 2.2 cm likely a cyst. The spleen , adrenals grossly appears unremarkable. The gallbladder is mildly distended The stomach is mildly distended with visualized pancreas grossly appears unremarkable. The small favio l is nondilated Feces and gas noted in the colon Few sigmoid colon diverticulosis. Moderate degenerative changes lumbar spine IMPRESSION: 1. No acute intra-abdominal findings. 2. Few sigmoid colon diverticulosis. 3. 2.2 cm cyst identified in the right lobe of the liver. Electronically signed by: Sinan Gabriel MD (08/17/2021 10:01 PM) [id number]
[2021-08-17] MEDS ORDERED: HYDR30CR61 TP (22:42)
[2021-08-17 23:03] VITALS: BP 128/68
== END 2021-08-17 23:11 | disposition home or self-care (01) ==
LOC: ER 19:52
DX: K62.5 Hemorrhage of anus and rectum (principal); K21.9 Gastro-esophageal reflux disease without esophagitis; E11.9 Type 2 diabetes mellitus without complications; I48.91 Unspecified atrial fibrillation; Z90.710 Acquired absence of both cervix and uterus; Z91.041 Radiographic dye allergy status
CPT/HCPCS: 36415; 74177; 80053; 81001; 82274; 83735; 85025; 99285; Q9967